=== PATIENT | female | born 1990 | race Two or more races ===

== ENCOUNTER 2017-02-12 12:26 | Emergency (ER) | payer SELFPAY ==
[~2017-02-12] VITALS: Ht 162.6 cm; Wt 77.1 kg
--- NOTE | 2017-02-12 13:26 | PHYS DOC ---
Past History Past Medical History: No Pertinent History Past Surgical History: Cholecystectomy Alcohol Use: Occasionally Drug Use: None Adult General Chief Complaint Chief Complaint: SKIN PROBLEM HPI HPI Ashley is a 26-year-old female who began having hives 4 days ago. She has used a new shampoo and condition starting about one week ago. She has no other symptoms. She has had not had recent viral syndrome. No other associated symptoms. Her rash is diffuse and itchy. Review of Systems Review of Systems Constitutional: Denies fever or chills [] Eyes: Denies change in visual acuity, redness, or eye pain [] HENT: Denies nasal congestion or sore throat [] Respiratory: Denies cough or shortness of breath [] Cardiovascular: No additional information not addressed in HPI [] GI: Denies abdominal pain, nausea, vomiting, bloody stools or diarrhea [] : Denies dysuria or hematuria [] Musculoskeletal: Denies back pain or joint pain [] Integument: Negative with the exception of history of present illness Neurologic: Denies headache, focal weakness or sensory changes [] Endocrine: Denies polyuria or polydipsia [] Family History Family History None Current Medications Current Medications No current medications Allergies Allergies No known allergies Physical Exam Physical Exam Constitutional: Well developed, well nourished, no acute distress, non-toxic appearance. [] HENT: Normocephalic, atraumatic, bilateral external ears normal, oropharynx moist, no oral exudates, nose normal. [] Eyes: PERRLA, EOMI, conjunctiva normal, no discharge. [] Neck: Normal range of motion, no tenderness, supple, no stridor. [] Cardiovascular:Heart rate regular rhythm, no murmur [] Lungs & Thorax: Bilateral breath sounds clear to auscultation [] Abdomen: Bowel sounds normal, soft, no tenderness, no masses, no pulsatile masses. [] Skin: Warm, dry, raised macular rash on extremities and trunk. Consistent with hives Back: No tenderness, no CVA tenderness. [] Extremities: No tenderness, no cyanosis, no clubbing, ROM intact, no edema. [] Neurologic: Alert and oriented X 3, normal motor function, normal sensory function, no focal deficits noted. [] Psychologic: Affect normal, judgement normal, mood normal. [] Current Patient Data Vital Signs Vital Signs Date Time Temp Pulse Resp B/P (MAP) Pulse Ox O2 Delivery O2 Flow Rate FiO2 02/12/17 12:26 98.2 99 20 96 Room Air EKG EKG [] Radiology/Procedures Radiology/Procedures [] Course & Med Decision Making Course & Med Decision Making Labs were declined. Will start steroid in the ED and give a script to go Dragon Disclaimer Dragon Disclaimer This chart was dictated in whole or in part using Voice Recognition software in a busy, high-work load, and often noisy Emergency Department environment. It may contain unintended and wholly unrecognized errors or omissions. Departure Departure: Impression: Primary Impression: John Disposition: HOME, SELF-CARE Referrals: PCPFIFI (PCP) Patient Instructions: John Additional Instructions: Evelyne was seen in the ED for rash. No emergency medical condition was found during the history and physical exam. She was started on a steroid for her symptoms. She was advised to follow up with her primary care doctor in the next 1-2 weeks for further management Scripts Prednisone (PREDNISONE) 10 Mg Tablet 10 MG PO DAILY for 5 Days, #5 TAB Prov: ANCELMO CASAS MD 02/12/17 ANCELMO CASAS MD Feb 12, 2017 13:26
[2017-02-12] MEDS ORDERED: PRED-220 PO (13:40)
[2017-02-12 13:58] VITALS: BP 104/60
[2017-02-12] MEDS ORDERED: DEXAMETHASONE SOD PHOS 4 MG/ML VIAL IM ONE (14:00)
== END 2017-02-12 14:01 | disposition home or self-care (01) ==
LOC: ER 12:26
DX: L50.9 Urticaria, unspecified (principal)
CPT/HCPCS: 96372; 99283; J1100